=== PATIENT | female | born 2005 | race Caucasian/White ===

== ENCOUNTER 2025-01-09 22:25 | Emergency (ER) | payer OTHER, SELFPAY ==
[2025-01-09 22:27] VITALS: BP 126/80; PULSE 86; RESP 16; TEMP 36.4; O2SAT 96; BMI 24.7
[2025-01-09 22:50] LABS: MANUAL DIFF FLAG NO
[2025-01-09 22:55] LABS: Hematocrit 40.2 % (37.0-47.0); Hemoglobin 13.4 g/dl (12.0-16.0); Imm Gran Abs Auto 0.01 X10*3/uL (0.00-0.03); Imm Gran Pct Auto 0.1 % (0.0-0.4); Lymphocytes Absolute Auto 2.2 X10*3/uL (1.2-4.9); Mean Corpuscular HGB Conc 33.3 g/dl (31.0-35.0); Mean Corpuscular Hemoglobin 28.1 pg (27.0-33.0); Mean Corpuscular Volume 84.3 fL (80.0-98.0); NRBC Abs Auto 0.000 X10*3/uL (0.0-0.012); NRBC Pct Auto 0.0 /100WBC (0.0-0.2); Platelet Count 262 X10*3/uL (160-400); Red Blood Count 4.77 X10*6/uL (4.20-5.50); White Blood Count 8.2 X10*3/uL (4.8-10.8)
[2025-01-09 23:07] LABS: IDNOW Serial# 55D5AD1C; Strep A Nucleic Acid Negative (Negative)
[2025-01-09 23:21] LABS: Anion Gap 14 (12-20); Blood Urea Nitrogen 21 mg/dL (9-16); Calcium 9.8 mg/dL (8.4-10.2); Carbon Dioxide 24 mmol/L (22-29); Chloride 106 mmol/L (96-108); Creatinine Clr Calc Pharmacy 123.3; Estimated Glomerular Filt Rate > 60; Potassium 4.2 mmol/L (3.3-5.1); Sodium 140 mmol/L (135-145)
--- NOTE | 2025-01-09 23:29 | ED.GENADULT ---
HPI - General Adult General Chief complaint: Dental/Oral Stated complaint: right side tooth pain Time Seen by Provider: 01/09/25 23:09 Source: patient Limitations: no limitations History of Present Illness ED Provider: Lila Ortiz PA-C HPI narrative: 19-year-old male presents with dental pain times 2-3 days. Patient states he is having discomfort over 1 of his right upper molars. He states 2-3 months ago he had a cavity filled, he was told at that time that he may require a root canal of the affected tooth. Patient states he has had continued sensitivity to cold or hot foods. Over the past 3 days, he has developed worsening pain over the site, he is having difficulty chewing on the right side. He states he has had drainage from the tooth. Denies fever. Patient states he recently changed insurance companies, his current dentist does not accept his new dental insurance. Related Data Previous Rx's ?Medication ?Instructions ?Recorded amoxicillin 875 mg-potassium 1 tab PO Q12H #19 tabs 01/09/25 clavulanate 125 mg tablet ketorolac 10 mg tablet 10 mg PO Q6H PRN pain #20 tabs 01/09/25 oxycodone 5 mg tablet 5 mg PO Q8H PRN pain #10 tabs 01/09/25 Allergies Allergy/AdvReac Type Severity Reaction Status Date / Time No Known Allergies Allergy Verified 01/09/25 22:29 Review of Systems Review of Systems: Yes all other systems are reviewed and are negative Constitutional: Constitutional: Denies fatigue and Denies fever(s) ENT: Reports dental pain and Denies sore throat Endocrine: Endocrine: Denies fatigue PMF Past Medical History Attestation statement: The following information was validated with the patient. Social History Social History Advance Directives: No Physical Exam ED Vital Signs: Vital Signs - 24 hr 01/09/25 22:27 01/09/25 23:39 01/09/25 23:57 Temperature 97.6 F 97.5 F Pulse Rate 86 61 61 Respiratory Rate 16 16 16 Blood Pressure 126/80 113/62 113/62 Pulse Oximetry 96 96 Oxygen Delivery Method Room Air Room Air BMI result Body Mass Index 24.7 Const Other: Alert well-appearing Orientation/consciousness: patient oriented x3 HENMT Other: No trismus no drooling, no sublingual fluctuance no swelling inferior to the jawline, the tooth in question is 3., there was no swelling or overt erythema superior to the tooth along the gingiva, there was no active purulence, it is sensitive to touch, the tooth itself appears intact, no obvious dental wanda Resp Effort & Inspection: normal respiratory effort Cardio Other: Normal peripheral perfusion Skin Other: Warm dry no rash Neuro General: patient oriented x3, gait normal, no focal motor deficits and CN's II-XI intact bilaterally Psych Other: Cooperative Medications Administered Discontinued Medications Generic Name Dose Route Start Last Admin Trade Name Suyapa PRN Reason Stop Dose Admin Amoxicillin/Clavulanate Potassium 875 mg 01/09/25 23:29 01/09/25 23:36 Amoxicillin/Potassium Clav 875 Mg Tablet PO 01/09/25 23:30 875 mg ONCE ONE Administration Ketorolac Tromethamine 15 mg 01/09/25 23:29 01/09/25 23:36 Ketorolac Tromethamine 15 Mg/Ml Vial IM 01/09/25 23:30 15 mg ONCE ONE Administration Oxycodone HCl 5 mg 01/09/25 23:29 01/09/25 23:36 Oxycodone Hcl Immed Release 5 Mg Tablet PO 01/09/25 23:30 5 mg ONCE ONE Administration Medical Decision Making Medical Decision Making MDM Narrative: 19-year-old male presents with dental pain times 2-3 days. Patient states he is having discomfort over 1 of his right upper molars. He states 2-3 months ago he had a cavity filled, he was told at that time that he may require a root canal of the affected tooth. Patient states he has had continued sensitivity to cold or hot foods. Over the past 3 days, he has developed worsening pain over the site, he is having difficulty chewing on the right side. He states he has had drainage from the tooth. Denies fever. Patient states he recently changed insurance companies, his current dentist does not accept his new dental insurance. No chronic issues History: Per patient I have considered the following differential diagnoses: Dental abscess, dental wanda, periodontal disease, You angina, apical abscess Plan: Patient is likely developing an infection, he has had issues with a tooth in the past, we will provide him with a list of local dentists. Starting him on an antibiotic and sending him with an anti-inflammatory and a pain med. No indication for imaging or labs at this time Differential Diagnosis Differential Diagnoses: The differential diagnosis associated with the presentation includes See medical decision-making Admission/Observation Consideration of admission/observation: Escalation of care including admission/observation considered Not applicable Lab Data 01/09/25 22:42 01/09/25 22:42 Labs: Lab Results 01/09/25 Range/Units 22:42 WBC 8.2 (4.8-10.8) X10*3/uL RBC 4.77 (4.20-5.50) X10*6/uL Hgb 13.4 (12.0-16.0) g/dl Hct 40.2 (37.0-47.0) % MCV 84.3 (80.0-98.0) fL MCH 28.1 (27.0-33.0) pg MCHC 33.3 (31.0-35.0) g/dl RDW 12.5 (11.0-16.0) % Plt Count 262 (160-400) X10*3/uL MPV 9.8 (9.4-12.3) fL Immature Gran % (Auto) 0.1 (0.0-0.4) % Neut % (Auto) 61.9 (45-73) % Lymph % (Auto) 27.4 (20-40) % Dodge % (Auto) 7.6 (2-11) % Eos % (Auto) 2.3 (0-4) % Baso % (Auto) 0.7 (0-2) % Lymph # (Auto) 2.2 (1.2-4.9) X10*3/uL Dodge # (Auto) 0.6 (0.1-1.2) X10*3/uL Eos # (Auto) 0.2 (0.0-0.4) X10*3/uL Baso # (Auto) 0.1 (0.0-0.2) X10*3/uL Abs Immat Gran (auto) 0.01 (0.00-0.03) X10*3/uL Absolute Neuts (auto) 5.1 (2.0-8.3) x10*3/uL Absolute Nucleated RBC 0.000 (0.0-0.012) X10*3/uL Nucleated RBC % (auto) 0.0 (0.0-0.2) /100WBC Sodium 140 (135-145) mmol/L Potassium 4.2 (3.3-5.1) mmol/L Chloride 106 (96-108) mmol/L Carbon Dioxide 24 (22-29) mmol/L Anion Gap 14 (12-20) BUN 21 H (9-16) mg/dL Creatinine 0.84 (0.5-1.4) mg/dL Estim Creat Clear Calc 123.3 Estimated GFR > 60 Random Glucose 92 (60-115) mg/dL Calcium 9.8 (8.4-10.2) mg/dL S. pyogenes GrpA [place] Negative (Negative) Discharge Plan Discharge Clinical Impression: Dental abscess Patient Disposition: Home, Self-Care Instructions: Dental Abscess (ED) Additional Instructions: It is concerning the you may be developing a deep root infection called an abscess. Take the antibiotic as directed. Take the ketorolac as directed this is an anti-inflammatory take it with food. Use the oxycodone as needed for further pain. You need to follow up with a dentist for further imaging and assessment. Prescriptions: New amoxicillin-pot clavulanate 875-125 mg tablet 1 tab PO Q12H Qty: 19 0RF ketorolac 10 mg tablet 10 mg PO Q6H PRN (Reason: pain) Qty: 20 0RF Rx Instructions: maximum total duration of 5 days from all oral, intranasal, or parenteral formulations. Patient received an intramuscular dose of Toradol here in the emergency room. oxycodone 5 mg tablet 5 mg PO Q8H PRN (Reason: pain) Qty: 10 0RF Rx Instructions: Partial Fill upon patient request. Referrals: [facility] [Outside] Referral Note: concern for dental abscess, the patient has been told in the past that he may require a root canal Carlos Trevino DMD [Dentist, Dentistry] Referral Note: concern for dental abscess, the patient has been told in the past that he may require a root canal Ambar Frey [Physician, Dentistry] Referral Note: concern for dental abscess, the patient has been told in the past that he may require a root canal Gilles Gage DMD [Dentist, Dentistry] Referral Note: concern for dental abscess, the patient has been told in the past that he may require a root canal Stand Alone Forms: Work/School Release Interventions: ED Discharge Assessment Last Done: 01/09/25 23:57 Discharge Date/Time: 01/09/25 23:57 Print Language: Citizen Of [place]
[2025-01-09] MEDS: oxyCODONE HCl Immed Release 5 MG TABLET PO (23:36)
[2025-01-09 23:39] VITALS: BP 113/62; PULSE 61; RESP 16
[2025-01-09 23:57] VITALS: BP 113/62; PULSE 61; RESP 16; TEMP 36.4; O2SAT 96
== END 2025-01-09 23:57 | disposition home or self-care (01) ==
PROVIDERS: Emergency Provider Emergency Medicine Emergency Medical Services
DX: K04.7 Periapical abscess without sinus (principal); K08.89 Other specified disorders of teeth and supporting structures
CPT/HCPCS: 80048; 85025; 87651; 96372; 99283; 99284; J1885